=== PATIENT | male | born 1990 | race Caucasian/White ===

== ENCOUNTER 2023-06-04 06:43 | Day surgery (SDC) | payer BC ==
[2023-06-04] MEDS ORDERED: Indocyanine Green 25 MG/10 ML VIAL ONE (07:48)
[2023-06-04] MEDS ORDERED: EPINEPHrine 1 MG/ML AMP ONE (07:48)
[2023-06-04] MEDS ORDERED: Bupivacaine 0.25% HCL 30 ML VIAL ONE (07:48)
[2023-06-04] MEDS ORDERED: Iopamidol 30 ML ONE (07:48)
[2023-06-04] MEDS ORDERED: Dexmedetomidine 200 MCG/2 ML VIAL ONE (08:53)
[2023-06-04] MEDS ORDERED: fentaNYL PF 100 MCG/2 ML SYRINGE ONE ×2 (08:53→11:42)
[2023-06-04] MEDS ORDERED: SUGAMMADEX SODIUM 200 MG/2 ML VIAL ONE (08:53)
[2023-06-04] MEDS ORDERED: cefOXitin 2 GM VIAL ONE (08:55)
[2023-06-04] MEDS ORDERED: Sodium Chloride 0.9% 100 ML ONE (08:55)
[2023-06-04] MEDS ORDERED: PROPOFOL 200 MG/20 ML VIAL ONE (09:11)
[2023-06-04] MEDS ORDERED: PHENYLEPHRINE-NS 100 MCG/ML 10 ML SYRINGE ONE (09:11)
[2023-06-04] MEDS ORDERED: Rocuronium Bromide 10 MG/ML (10ML VIAL) ONE (09:11)
[2023-06-04] MEDS ORDERED: NEOSTIGMINE 3 MG/3 ML SYR 3 MG/3 ML SYRINGE ONE (09:11)
[2023-06-04] MEDS ORDERED: Glycopyrrolate 0.2 MG/ML 5 ML SYRINGE ONE (09:11)
[2023-06-04] MEDS ORDERED: Lidocaine 1% PF 5 ML VIAL ONE (09:11)
[2023-06-04] MEDS ORDERED: Ondansetron PF 4 MG/2 ML Vial ONE (09:11)
[2023-06-04] MEDS ORDERED: Dexamethasone 20 MG/5 ML VIAL ONE (09:11)
[2023-06-04] MEDS ORDERED: fentaNYL 50 mcg/mL 1 mL Vial ONE ×2 (12:14→15:49)
[2023-06-04] MEDS ORDERED: HYDROcodone/Acetaminophen 5/325 mg Tablet ONE (14:10)
== END 2023-06-04 16:53 | disposition home or self-care (01) ==
LOC: SDC/OP 06:43
PROVIDERS: ATTEND Surgery
PROC: 0FT44ZZ Resection of Gallbladder, Percutaneous Endoscopic Approach (ICD-10-PCS; principal; 2023-06-04)
PROC: BF13YZZ Fluoroscopy of Gallbladder and Bile Ducts using Other Contrast (ICD-10-PCS; principal; 2023-06-04)
DX: K80.12 Calculus of gallbladder with acute and chronic cholecystitis without obstruction (principal); R94.5 Abnormal results of liver function studies; F90.9 Attention-deficit hyperactivity disorder, unspecified type; Z90.49 Acquired absence of other specified parts of digestive tract; Z79.899 Other long term (current) drug therapy
CPT/HCPCS: 47532; 88304; J0171; J0694; J1100; J2405; J2704; J3010; J3490; Q9967; S0020